=== PATIENT | female | born 1990 | race American Indian/Alaskan Native ===

== ENCOUNTER 2018-07-31 14:16 | Outpatient (CLI) | payer MEDICAID ==
[2018-07-31] MEDS ORDERED: LACTATED RINGERS 500 ML IV ONE (15:08)
[2018-07-31 16:15] LABS: Bilirubin,Urine NEG (Negative); Blood,Urine NEG (Negative); Color,Urine Amber (Yellow); Mucus,Urine 2+ /HPF
--- NOTE | 2018-07-31 17:07 | Ultrasound Report ---
FINAL REPORT EXAM: US OB BPP WO NON-STRESS HISTORY: well being TECHNIQUE: Ultrasound examination of the gravid uterus for biophysical profile evaluation of the fet us PRIORS: Limited Ob ultrasound 07/31/2018 FINDINGS: There is a single viable intrauterine with documented cardiac activity. The amniotic fluid volume is normal. heart rate: 153 and 164 bpm Amniotic fluid index: 10.8 cm position: Cephalic Evaluation for biophysical profile yields the following score as reported by technologist from real-t alen exam: respiratory motion (minimum one episode): 2 Gross body movement (minimum 3 movements): 2 tone (minimum one flexion and extension): 2 Amniotic fluid volume (at least 2 cm pocket in vertical diameter): 2 IMPRESSION: Single viable intrauterine with 8/8 biophysical profile score during the sonographic evalua tion
--- NOTE | 2018-07-31 17:11 | Ultrasound Report ---
FINAL REPORT EXAM: US OB LIMITED HISTORY: well being , 30 weeks 4 days gestation TECHNIQUE: Ultrasound evaluation of the gravid uterus PRIORS: Biophysical profile 07/31/2018 FINDINGS: There is a single viable intrauterine with documented cardiac activity. No anatomic a ssessment. Heart rate: 153 beats per minute position: Cephalic Amniotic fluid index: 10.8cm IMPRESSION: Single viable intrauterine with the above parameters
[2018-08-02 12:20] VITALS: BP 121/73
--- NOTE | 2018-08-03 06:57 | Event Note ---
Date: 07/31/18 Note for 07/31/2018 28 year old presents at 30 weeks, 4 days gestation to rule out labor. Patient states she has been having intermittent brief abdominal pains while standing. She denies regular contractions. Patient denies leaking of fluid or vaginal bleeding. Patient reports active movement. Patient denies any other complaints. Patient is well appearing, alert, oriented, NAD. VSS. Category 1 heart rate tracing. No regular contractions noted per monitor. No contractions palpated. No leaking of fluid or vaginal bleeding seen. MICHAELA 10.8 cm. BPP 8/8. Cervix closed and thick. Patient was determined not to be in active labor. PTL warning signs discussed with pt. Daily movement counting discussed with pt. Advised pt. to follow up at [facility] this week.
== END 2018-07-31 18:12 | disposition home or self-care (01) ==
LOC: TRG 14:16
PROVIDERS: ATTEND Obstetrics & Gynecology
DX: O47.03 False labor before 37 completed weeks of gestation, third trimester (principal); Z3A.30 30 weeks gestation of pregnancy
CPT/HCPCS: 59025; 76815; 76819; 81001

== ENCOUNTER 2018-09-08 17:13 | Outpatient (CLI) | payer MEDICAID ==
[2018-09-08] MEDS ORDERED: LACTATED RINGERS 500 ML IV ONE (17:49)
[2018-09-08 18:11] LABS: Color,Urine Yellow (Yellow)
[2018-09-08 18:12] LABS: Bacteria,Urine 2+ /HPF (Negative); Bilirubin,Urine NEG (Negative); Blood,Urine NEG (Negative); Mucus,Urine FEW /HPF
[2018-09-08 21:10] VITALS: BP 135/84
== END 2018-09-08 21:34 | disposition home or self-care (01) ==
LOC: TRG 17:13
PROVIDERS: ATTEND Obstetrics & Gynecology
DX: O47.03 False labor before 37 completed weeks of gestation, third trimester (principal); Z3A.36 36 weeks gestation of pregnancy
CPT/HCPCS: 59025; 81001; 96360; J7120

== ENCOUNTER 2018-09-12 01:39 | Outpatient (CLI) | payer MEDICAID ==
[2018-09-12 03:30] LABS: Amorphous Crystals,Urine Few; Bilirubin,Urine NEG (Negative); Blood,Urine NEG (Negative); Color,Urine Yellow (Yellow); Mucus,Urine FEW /HPF; Protein,Urine <15 mg/dL mg/dL (Negative)
[2018-09-12] MEDS ORDERED: TYLENOL PO ONE (03:48)
[2018-09-12 03:58] VITALS: BP 121/73
--- NOTE | 2018-09-12 21:18 | Progress Note ---
Assessment and Plan A: at 36 weeks, 5 days gestation. UTI, currently being treated with Macrobid as an outpatient. Reactive NST. No cervical change. P: Discharge patient home with labor precautions. Advised patient to perform daily movement counting. Advised patient to return promptly if any signs of active labor. Continue Macrobid po as an outpatient (pt. has Rx at home). Follow up with [facility] this week. Patient voiced understanding of instructions. Subjective - Subjective Date of service: 09/12/18 Principal diagnosis: at 36 weeks, 5 days gestation Interval history: Triage note for 09/12/18: 28 year old presents at 35 weeks, 5 days gestation with complaint of lower back discomfort. Patient is taking Macrobid for UTI for past 2 days; plans to complete her course of antibiotics. Patient reports active movement. She denies leaking of fluid or vaginal bleeding or regular contractions. She denies flank pain, fever, chills, or malaise. Patient denies any complications with this . Patient reports: movement normal, no loss of fluid, no vaginal bleeding, no contractions Objective - Exam Abdomen: Present: normal appearance, soft. Absent: distention, tenderness, guarding, rigidity Uterus: Present: normal, fundal height above umbilicus. Absent: tenderness FHR: category 1 Uterine Contraction Monitor Mode: External Cervical Dilatation: 3 (Exam by RN (no change per RN after greater than 1 hour)) Cervical Effacement Percentage: 80 station: -3 - Labs Labs: Laboratory Results - last 24 hr 09/12/18 02:55 Urine Color Yellow Urine Turbidity Clear Urine pH 6.0 Ur Specific [place] 1.013 Urine Protein <15 mg/dl Urine Glucose (UA) Neg Urine Ketones Neg Urine Blood Neg Urine Nitrite Neg Urine Bilirubin Neg Urine Urobilinogen 2.0 Ur Leukocyte Esterase Mod Urine WBC (Auto) 6.0 Urine RBC (Auto) 3.0 U Epithel Cells (Auto) 4.0 Amorphous Crystals Few Urine Mucus Few
== END 2018-09-12 04:17 | disposition home or self-care (01) ==
LOC: TRG 01:39
PROVIDERS: ATTEND Obstetrics & Gynecology
DX: O62.8 Other abnormalities of forces of labor (principal); Z3A.36 36 weeks gestation of pregnancy
CPT/HCPCS: 59025; 81001

== ENCOUNTER 2018-09-24 12:36 | Inpatient (IN) | payer MEDICAID ==
[2018-09-24] MEDS ORDERED: XYLOCAINE 2% INFILTRATI ONE (14:19)
[2018-09-24] MEDS ORDERED: BRETHINE IVP PRN (14:19)
[2018-09-24] MEDS ORDERED: NARCAN 0.4 MG/1 ML IV PRN (14:19)
[2018-09-24] MEDS ORDERED: MINERAL OIL PO PRN (14:19)
[2018-09-24] MEDS ORDERED: BRETHINE SUB-Q PRN (14:19)
[2018-09-24] MEDS ORDERED: STADOL IV PRN (14:19)
[2018-09-24] MEDS ORDERED: LACTATED RINGERS 1,000 ML ONE (14:22)
[2018-09-24] MEDS ORDERED: PITOCin/NS 30 UNIT/500ML 30,000 MILLIUNITS/500 ML BAG IV ONE (14:22)
--- NOTE | 2018-09-24 14:26 | History and Physical Report ---
History of Present Illness Date of examination: 09/24/18 Date of admission: 09/24/18 12:36 Chief complaint: Labor Pains History of present illness: Early entry to care; course complicated by Anemia, Vitamin D Deficiency, and a UTI. 2nd trimester complicated by vaginal bleeding. 3rd Trimester complicated by a +Ffn and labor concerns. 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 Family/Genetic History: heart disease, hypertension, stroke, cancer Social history: no significant social history, single - Obstetrical History Expected Date of Delivery: 10/05/18 Actual Gestation: 38 Week(s) 3 Day(s) : 4 Para: 3 Hx # Term Pregnancies: 3 Number of Living Children: 3 #1 Gender: Male year: 2,006 Birthweight: 2.948 kg Method of Delivery: Vaginal Gestational age at delivery: 38 #2 Gender: Female year: 2,011 Birthweight: 2.977 kg Method of Delivery: Vaginal Gestational age at delivery: 39 Complications: none #3 Gender: Male year: 2,014 Birthweight: 2.835 kg Method of Delivery: Vaginal (39) Medications and Allergies Allergies Allergy/AdvReac Type Severity Reaction Status Date / Time No Known Allergies Allergy Verified 07/31/18 14:47 Home Medications Medication Instructions Recorded Confirmed Last Taken Type No Known Home Medications [No 03/31/13 07/02/13 Unknown History Reported Home Medications] Active Meds: Active Medications Butorphanol Tartrate (Stadol) 1 mg IV Q2H PRN PRN Reason: Pain, Moderate (4-6) Ephedrine Sulfate (Ephedrine Sulfate) 10 mg IV Q2M PRN PRN Reason: Hypotension Lactated Ringer's (Lactated Ringers) 1,000 mls @ 125 mls/hr IV DIRECT SANDIE Oxytocin/Sodium Chloride (Pitocin/Ns 20 Unit/1000ml Drip) 20 units in 1,000 mls @ 125 mls/hr IV DIRECT SANDIE Oxytocin/Sodium Chloride (Pitocin/Ns 30 Unit/500ml) 30 units in 500 mls @ 1 mls/hr IV TITR SANDIE; Protocol Lidocaine (Xylocaine 2%) 20 ml INFILTRATI ONCE ONE Stop: 09/24/18 14:20 Mineral Oil (Mineral Oil) 30 ml PO QHS PRN PRN Reason: Constipation Naloxone HCl (Narcan 0.4 Mg/1 Ml) 0.1 mg IV Q2MIN PRN PRN Reason: Res Rate </= 8 or 02 SAT < 92% Terbutaline Sulfate (Brethine) 0.25 mg SUB-Q ONCE PRN PRN Reason: Hyperstimulation/Hypertonicity Terbutaline Sulfate (Brethine) 0.25 mg IVP ONCE PRN PRN Reason: Hyperstimulation/Hypertonicity Review of Systems All systems: negative - Vital Signs Vital signs: Vital Signs Pulse BP 78 116/75 09/24/18 13:50 09/24/18 13:50 Temp Pulse Resp BP Pulse Ox 78 116/75 09/24/18 13:50 09/24/18 13:50 - Physical Exam Breasts: Positive: normal Cardiovascular: Regular rate Lungs: Positive: Clear to auscultation, Normal air movement Abdomen: Positive: normal appearance, soft, normal bowel sounds Genitourinary (Female): Positive: normal external genitalia, normal perenium Vagina: Positive: normal moisture Uterus: Positive: enlarged Anus/Rectum: Positive: normal perianal skin - Obstetrical FHR: category 1 Uterine Contraction Monitor Mode: External Cervical Dilatation: 6 (Copious amount of clear fluid upon AROM at 1413) Cervical Effacement Percentage: 80 station: -2 Uterine Contraction Pattern: Irregular Uterine Tone Measurement Phase: Resting Uterine Contraction Intensity: Moderate Results All other labs normal. Assessment and Plan A: IUP @ 38 3/7 Weeks Category I Tracing Active Labor GBS Negative P: Admit to L&D per Routine Orders AROM Pitocin Augmentation
[2018-09-24] MEDS ORDERED: PITOCin/NS 30 UNIT/500ML 30 UNITS/500 ML BAG IV SCH (15:00)
[2018-09-24] MEDS ORDERED: LACTATED RINGERS 1,000 ML IV SCH (15:00)
[2018-09-24] MEDS ORDERED: PITOCin/NS 20 UNIT/1000ML DRIP 20 UNITS/1,000 ML BAG IV SCH (15:00)
[2018-09-24 15:15] LABS: Hematocrit 28.6 % (30.3-42.9); Hemoglobin 9.2 gm/dl (10.1-14.3); Mean Corpuscular HGB Conc 32 % (30-34); Mean Corpuscular Volume 80 fl (79-97); Platelet Count 267 K/mm3 (140-440); Red Blood Count 3.58 M/mm3 (3.65-5.03); Red Cell Distribution Width 16.2 % (13.2-15.2)
[2018-09-24] MEDS ORDERED: SUBLIMAZE IV ONE (17:01)
[2018-09-24] MEDS ORDERED: SUBLIMAZE ONE (17:02)
[2018-09-24] MEDS ORDERED: PHENERGAN PR PRN (17:21)
[2018-09-24] MEDS ORDERED: LANSINOH TP PRN (17:21)
[2018-09-24] MEDS ORDERED: TUCKS PAD TP PRN (17:21)
[2018-09-24] MEDS ORDERED: BENADRYL PO PRN (17:21)
[2018-09-24] MEDS ORDERED: NORCO 5/325 PO PRN (17:21)
[2018-09-24] MEDS ORDERED: METHERGINE IM ONE ×2 (17:27→17:33)
--- NOTE | 2018-09-24 17:28 | Procedure Note ---
OB Delivery Note - Delivery Date of Delivery: 09/24/18 (1704) Surgeon: DANIEL DREW Estimated blood loss: 200cc - Vaginal Delivery presentation: vertex Delivery position: OA Intrapartum events: none Delivery induction: none Delivery augmentation: rupture of membranes, pitocin Delivery monitor: external FHT, external uterine Route of delivery: Delivery placenta: spontaneous Delivery cord: 3 umbilical vessels Episiotomy: none Delivery laceration: none Anesthesia: none Delivery comments: of a live 6'13 female over a intact perineum under IV pain control with Apgars of 8 and 9 at 1704 on 09/24/2018. Infant directly to maternal abd/chest, skin to skin contact. Spontaneous delivery of placenta complete and intact with Kaur side presenting at 1710. Fundus is firm and midline located 4 below the U. Lochia is scant. Delayed cord clamping and cutting; Cord cut by the maternal grandmother. Placenta discarded. - Infant A at 1 minute: 8 at 5 minutes: 9 Gender: Female ([phone])
[2018-09-24] MEDS ORDERED: SODIUM CHLORIDE FLUSH SYRINGE 10 ML IV SCH (18:00)
[2018-09-24] MEDS: IBUPROFEN PO SCH (19:55)
[2018-09-24] MEDS: SENOKOT S PO SCH (19:57)
[2018-09-25] MEDS: IBUPROFEN PO SCH ×5 (04:56→23:28)
[2018-09-25] MEDS: SENOKOT S PO SCH ×3 (06:38→18:14)
[2018-09-25 07:59] LABS: Hematocrit 24.5 % (30.3-42.9); Hemoglobin 7.8 gm/dl (10.1-14.3)
--- NOTE | 2018-09-25 10:25 | Progress Note ---
Assessment and Plan - Patient Problems (1) Status post normal vaginal delivery Current Visit: Yes Status: Acute Plan to address problem: PPD 1 - stable Continue routine PP orders Anticipate discharge in 24-48 hours (2) Anemia due to blood loss, acute Current Visit: Yes Status: Acute Plan to address problem: Asymptomatic Iron therapy initiated Repeat H&H ordered 09/26/18 Subjective - Subjective Date of service: 09/25/18 Principal diagnosis: PPD #1; s/p Interval history: see H&P and OB Delivery Procedure Note Patient reports: appetite normal, voiding normally, pain well controlled, ambulating normally, no dizzy ambulation : doing well, bottle feeding Objective - Vital Signs Latest vital signs: Vital Signs Temp Pulse Resp BP BP Pulse Ox 09/25/18 07:46 97.6 F 78 18 114/72 100 09/25/18 05:36 98.1 F 18 115/71 09/25/18 05:35 98.1 F 68 18 115/71 97 09/25/18 01:01 98.0 F 18 111/68 09/25/18 01:00 98.8 F 68 18 111/68 98 09/24/18 21:00 72 99 09/24/18 20:01 98.4 F 16 137/87 09/24/18 19:55 18 09/24/18 19:05 98.7 F 09/24/18 19:04 76 108/62 09/24/18 18:49 75 115/65 09/24/18 18:34 75 112/65 09/24/18 18:24 78 112/59 09/24/18 17:49 72 115/64 09/24/18 17:41 79 124/67 09/24/18 17:38 77 122/65 09/24/18 17:26 82 108/61 09/24/18 17:19 80 103/54 09/24/18 15:06 97 F L 78 16 116/75 09/24/18 13:50 78 116/75 Intake and Output 09/24/18 09/25/18 09/25/18 23:59 07:59 15:59 Intake Total 720 Output Total 250 250 Balance -250 470 Intake: Oral 240 Intake, Free Water 480 Output: Urine 250 250 Void 250 250 Other: Total, Intake Amount 240 Total, Output Amount 250 250 # Voids Void 1 Estimated Blood Loss 200 - Exam Cardiovascular: Present: Regular rate Lungs: Present: Clear to auscultation Abdomen: Present: normal appearance, soft Vulva: both: normal Uterus: Present: normal, firm, fundal height at umbilicus Extremities: Present: normal Comments: scant lochia - Labs Labs: Abnormal lab results 09/24/18 09/25/18 Range/Units 14:55 07:14 RBC 3.58 L (3.65-5.03) M/mm3 Hgb 9.2 L 7.8 L (10.1-14.3) gm/dl Hct 28.6 L 24.5 L (30.3-42.9) % MCH 26 L (28-32) pg RDW 16.2 H (13.2-15.2) %
[2018-09-25] MEDS: FEOSOL PO SCH ×2 (10:43→21:31)
[2018-09-26] MEDS: IBUPROFEN PO SCH ×2 (05:05→12:26)
[2018-09-26] MEDS: SENOKOT S PO SCH (05:54)
[2018-09-26 06:38] LABS: Hematocrit 23.1 % (30.3-42.9); Hemoglobin 7.6 gm/dl (10.1-14.3)
--- NOTE | 2018-09-26 12:17 | Progress Note ---
Assessment and Plan A: day 2 S/P spontaneous vaginal delivery. Anemia secondary to and blood loss; patient is asymptomatic. P: Discharge patient home today when baby is able to go. Advised patient to continue taking her iron supplements at home (TID if possible). Advised patient to also continue taking her vitamin daily. discharge instructions and warning signs were discussed with patient in detail. Advised patient to avoid intercourse, driving, lifting, and heavy housework. Advised patient to return to [facility] in 2 weeks to recheck hemoglobin and hematocrit. Iron rich foods discussed with patient. Patient voiced understanding of all instructions. Subjective - Subjective Date of service: 09/26/18 Principal diagnosis: PPD #2; s/p Interval history: day 2 S/P spontaneous vaginal delivery. Doing well. Desires discharge today. Patient reports a small amount of lochia. Patient is voiding without difficulty and ambulating well. She is tolerating a regular diet without nausea or vomiting. Patient denies headache, dizziness, cough, shortness of breath, chest pain, abdominal pain, leg pain, heavy bleeding, symptoms of depression, or any other symptoms. Patient reports: appetite normal, voiding normally, pain well controlled, flatus, ambulating normally, no dizzy ambulation, no nauseated Fosters: doing well Objective - Vital Signs Latest vital signs: Vital Signs Temp Pulse Resp BP BP Pulse Ox 09/26/18 09:56 97.8 F 71 20 113/68 97 09/26/18 05:07 18 09/26/18 05:05 18 09/26/18 01:55 98.2 F 69 20 115/76 99 09/25/18 15:27 98.4 F 79 18 116/78 99 Intake and Output 09/25/18 09/26/18 09/26/18 23:59 07:59 15:59 Intake Total 240 360 Output Total 1 Balance 240 359 Intake: Intake, Free Water 240 360 Output: Urine 1 Void 1 Other: Total, Output Amount 1 # Voids Void 1 1 - Exam Cardiovascular: Present: Regular rate, Normal S1, Normal S2, No murmurs Lungs: Present: Clear to auscultation Abdomen: Present: normal appearance, soft. Absent: distention, tenderness, guarding, rigidity Uterus: Present: normal, firm, fundal height below umbilicus. Absent: bogginess, tenderness Extremities: Present: normal. Absent: tenderness, edema - Labs Labs: Abnormal lab results 09/26/18 Range/Units 06:01 Hgb 7.6 L (10.1-14.3) gm/dl Hct 23.1 L (30.3-42.9) %
--- NOTE | 2018-09-26 12:21 | Discharge Summary ---
Providers - Providers Date of Admission: 09/24/18 12:36 Date of discharge: 09/26/18 Attending physician: ABDIRAHMAN SERRANO MD Primary care physician: ABDIRAHMAN SERRANO MD Hospitalization Reason for admission: active labor Delivery: Episiotomy: none Laceration: none Other procedures: none complications: none Discharge diagnosis: IUP at term delivered [place] baby: female Pertinent studies: Labs Hospital course: Normal hospital course. Condition at discharge: Good Disposition: DC-01 TO HOME OR SELFCARE - Discharge Diagnoses (1) Term delivered Status: Acute (2) Anemia due to blood loss Status: Acute Plan - Provider Discharge Summary Activity: routine, no sex for 6 weeks, no heavy lifting 4 weeks, no strenuous exercise Diet: routine Instructions: routine Additional instructions: Take iron supplement at home every 8 hours. Take vitamin daily. (Patient has these medications at home). Call your doctor immediately for: * Fever > 100.5 * Heavy vaginal bleeding ( >1 pad per hour) * Severe persistent headache * Shortness of breath * Reddened, hot, painful area to leg or breast - Follow up plan Follow up: ABDIRAHMAN SERRANO MD [Primary Care Provider] - 14 Days
[2018-09-26] MEDS: FEOSOL PO SCH (12:26)
[2018-09-26 17:40] VITALS: BP 112/74
== END 2018-09-26 17:58 | disposition home or self-care (01) | DRG 775 ==
LOC: LD 12:36 → OB 19:46
PROVIDERS: ADMIT Obstetrics & Gynecology; ATTEND Obstetrics & Gynecology
PROC: 10E0XZZ Delivery of Products of Conception, External Approach (ICD-10-PCS; principal; 2018-09-24)
PROC: 10907ZC Drainage of Amniotic Fluid, Therapeutic from Products of Conception, Via Natural or Artificial Opening (ICD-10-PCS; 2018-09-24)
DX: O99.02 Anemia complicating childbirth (principal); D62 Acute posthemorrhagic anemia; Z3A.38 38 weeks gestation of pregnancy; Z37.0 Single live birth; Z82.49 Family history of ischemic heart disease and other diseases of the circulatory system; Z86.73 Personal history of transient ischemic attack (TIA), and cerebral infarction without residual deficits
CPT/HCPCS: 36415; 85014; 85018; 85027; 86592; 86850; 86900; 86901; G0378; J0595; J2210; J2590; J3010; J7120

== ENCOUNTER 2020-04-04 08:52 | Day surgery (SDC) | payer MEDICAID ==
--- NOTE | 2020-03-31 10:39 | History and Physical Report ---
History of Present Illness Date of examination: 03/31/20 History of present illness: 30 yo desires sterilization. 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 Review of Systems All systems: negative (except HPI) - Vital Signs Vital signs: per EMR charting - Physical Exam Cardiovascular: Regular rate Lungs: Positive: Clear to auscultation, Normal air movement Abdomen: Positive: normal appearance, soft. Negative: tenderness Genitourinary (Female): Positive: other (deferred to the OR) Results All other labs normal. Assessment and Plan - Patient Problems (1) Sterilization Status: Acute Plan to address problem: PT will present on 04/04 for scheduled Lap BTL. PT consented, including the leann [employer] 08/999 risk of failure. She understand and accepts this.
[2020-04-04] MEDS ORDERED: MAGNESIUM OXIDE 400 MG TAB PO ONE (09:26)
[2020-04-04] MEDS ORDERED: ACETAMINOPHEN 500 MG TAB PO ONE (09:26)
[2020-04-04] MEDS ORDERED: ONDANSETRON 4 MG/2 ML INJ IV PRN (09:27)
[2020-04-04] MEDS ORDERED: HYDROmorphone 1 MG/1 ML INJ IV PRN ×2 (09:27)
--- NOTE | 2020-04-04 09:28 | Anesthesia Consultation ---
Anesthesia Consult and Med Hx Date of service: 04/04/20 - Airway Anesthetic Teeth Evaluation: Good ROM Head & Neck: Adequate Mental/Hyoid Distance: Adequate Mallampati Class: Class II Intubation Access Assessment: Good - Pre-Operative Health Status ASA Pre-Surgery Classification: ASA2 Proposed Anesthetic Plan: General - Pulmonary Hx Asthma: No COPD: No Hx Pneumonia: No - Cardiovascular System Hx Hypertension: No - Central Nervous System Hx Seizures: No Hx Back Pain: Yes (Thoracic spine) Hx Psychiatric Problems: No - Endocrine Hx Renal Disease: No Hx End Stage Renal Disease: No Hx Hypothyroidism: No Hx Hyperthyroidism: No - Hematic Hx Anemia: No Hx Sickle Cell Disease: No - Other Systems Hx Alcohol Use: No Hx Cancer: No Hx Obesity: Yes
--- NOTE | 2020-04-04 09:28 | Anesthesia Day of Surgery ---
Anesthesia Day of Surgery - Day of Surgery Patient Examined: Yes Patient H&P Reviewed: Yes Patient is NPO: Yes
[2020-04-04] MEDS ORDERED: LACTATED RINGERS 1,000 ML IV SCH (10:00)
[2020-04-04] MEDS ORDERED: MIDAZOLAM 2 MG/2 ML INJ IV NR (10:00)
[2020-04-04] MEDS ORDERED: CELECOXIB 200 MG CAP PO NR (10:00)
[2020-04-04] MEDS ORDERED: GABAPENTIN 300 MG CAP PO NR (10:00)
[2020-04-04] MEDS ORDERED: BUPIVACAINE/PF (0.5%) 5 MG/1 ML 30 ML VIAL INFILTRATI ONE ×2 (10:11→11:11)
[2020-04-04] MEDS ORDERED: fentaNYL 100 MCG/2 ML INJ ONE (10:22)
[2020-04-04] MEDS ORDERED: ROCURONIUM 50 MG/5 ML INJ IV ONE (10:22)
[2020-04-04] MEDS ORDERED: propofoL 200 MG/20 ML VIAL IV ONE (10:22)
[2020-04-04] MEDS ORDERED: WATER FOR IRRIG STERILE 1,500 ML BOTTLE IR ONE (11:13)
[2020-04-04] MEDS ORDERED: NEOSTIGMINE 10MG/10 ML INJ MDV ONE (11:16)
[2020-04-04] MEDS ORDERED: dexAMETHasone 20 MG/5 ML VIAL ONE (11:16)
[2020-04-04] MEDS ORDERED: KETOROLAC 30 MG/1 ML INJ ONE (11:16)
[2020-04-04] MEDS ORDERED: ONDANSETRON 4 MG/2 ML INJ ONE (11:16)
[2020-04-04] MEDS ORDERED: GLYCOPYRROLATE 0.4 MG/2 ML INJ ONE (11:16)
[2020-04-04] MEDS ORDERED: LIDOCAINE MPF (2%) 20 MG/1 ML VIAL 5 ML ONE (11:19)
--- NOTE | 2020-04-04 11:28 | Post Operative Note ---
Date of procedure: 04/04/20 Pre-op diagnosis: Sterilization Post-op diagnosis: same Findings: Normal uterus, tubes, ovaries. General abdominal/pelvic survey within normal limits. No gross anomalies found anywhere. Procedure: Indication: 30-year-old G4, P4 desires sterilization. Procedure: Laparoscopic bilateral tubal ligation. Patient taken the operating room and prepped and draped in usual fashion. Attention was first turned vaginally where single-tooth tenaculum was applied to the anterior lip of the cervix and an acorn uterine manipulator was placed. Attention was now turned abdominally where a 5 mm incision was made in the umbilicus. Veres needle then placed in the abdominal cavity. The abdomen was appropriately insufflated with CO2 gas. Veres needle removed and the 5 mm trocar was placed in abdominal cavity. Placement confirmed with the camera. Attention was turned suprapubically where an 8 mm incision was made and the 8 mm trocar was placed suprapubically in the midline under direct visualization. Trocar placed successfully and without difficulty. Attention was first turned to assess in the abdomen and pelvis. Findings noted above. Attention turned to the tubal ligation where a Filshie clip was applied to each tube. Each clip encompassed the full width of the tube on each side and good hemostasis was noted afterwards on both sides. At this point the abdomen was fully desufflated. Trochars were removed. Trocar sites were closed with 4-0 Vicryl in a subcuticular fashion followed by Marcaine. The acorn uterine manipulator and single-tooth tenaculum were removed. Procedure concluded at this point. Patient tolerated the procedure well. All instrument lap counts were correct. Patient taken to the recovery room in stable condition. Anesthesia: GETA Surgeon: KRISTIN RUGGIERO Estimated blood loss: minimal Pathology: none Condition: stable Disposition: PACU
--- NOTE | 2020-04-04 11:29 | Short Stay Summary ---
Short Stay Documentation Date of service: 04/04/20 Narrative H&P: Patient here for her scheduled laparoscopic bilateral tubal ligation. Surgery was uncomplicated. Please see op report and H&P for details. Patient to follow-up in the office 2 weeks postop - History H&P: dictated Social history: no significant social history - Allergies and Medications Current Medications: Allergies acetaminophen [From Vicodin] Allergy (Verified 03/31/20 14:48) Heart races hydrocodone [From Vicodin] Allergy (Verified 03/31/20 14:48) Heart races Home Medications Medication Instructions Recorded Confirmed Last Taken Type RX: Ibuprofen [Motrin 600 MG tab] 600 mg PO Q6H PRN #30 tablet 04/04/20 Unknown Rx RX: traMADoL [Ultram 50 MG tab] 50 mg PO Q4HR PRN #30 tablet 04/04/20 Unknown Rx Active Medications Celecoxib (Celebrex) 400 mg PO PREOP NR Stop: 04/04/20 23:59 Last Admin: 04/04/20 09:50 Dose: 400 mg Documented by: Gabapentin (Gabapentin) 300 mg PO PREOP NR Stop: 04/04/20 23:59 Last Admin: 04/04/20 09:50 Dose: 300 mg Documented by: Hydromorphone HCl (Dilaudid) 0.25 mg IV Q10MIN PRN PRN Reason: Pain, Moderate (4-6) Hydromorphone HCl (Dilaudid) 0.5 mg IV Q10MIN PRN PRN Reason: Pain , Severe (7-10) Lactated Ringer's (Lactated Ringers) 1,000 mls @ 125 mls/hr IV DIRECT SANDIE Last Admin: 04/04/20 09:50 Dose: 125 mls/hr Documented by: Midazolam HCl (Versed) 2 mg IV PREOP NR Stop: 04/04/20 23:59 Ondansetron HCl (Zofran) 4 mg IV ONCE PRN PRN Reason: Nausea And Vomiting - Disposition Condition at discharge: Stable Disposition: DC-01 TO HOME OR SELFCARE - Discharge Diagnoses (1) Sterilization Status: Acute Short Stay Discharge Plan Follow up with: KRISTIN RUGGIERO MD [Staff Physician] - 14 Days Prescriptions: RX: Ibuprofen [Motrin 600 MG tab] 600 mg PO Q6H PRN #30 tablet PRN Reason: Pain RX: traMADoL [Ultram 50 MG tab] 50 mg PO Q4HR PRN #30 tablet PRN Reason: Pain
[2020-04-04] MEDS ORDERED: oxyCODONE /ACETAMINOPHEN 5-325MG TAB ONE (11:57)
[2020-04-04] MEDS ORDERED: oxyCODONE /ACETAMINOPHEN 5-325MG TAB PO PRN (11:59)
[2020-04-04 12:10] VITALS: BP 110/65
--- NOTE | 2020-04-04 12:23 | Post Anesthesia Evaluation ---
- Post Anesthesia Evaluation Patient Participated: Yes Airway Patent: Yes Stable Respiratory Function: Yes Nausea/Vomiting: No Temp > 96.8F: Yes Pain Manageable: Yes Adequeate Hydration: Yes Anesthesia Complications: No Block Receding Appropriately: Not Applicable Patient on Ventilator: No
== END 2020-04-04 08:53 | disposition home or self-care (01) ==
LOC: OR 08:52
PROVIDERS: ATTEND Obstetrics & Gynecology
DX: Z30.2 Encounter for sterilization (principal); D50.0 Iron deficiency anemia secondary to blood loss (chronic); K21.9 Gastro-esophageal reflux disease without esophagitis; E66.9 Obesity, unspecified; Z68.38 Body mass index [BMI] 38.0-38.9, adult; Z79.899 Other long term (current) drug therapy; Z88.8 Allergy status to other drugs, medicaments and biological substances; Z98.890 Other specified postprocedural states; Z82.49 Family history of ischemic heart disease and other diseases of the circulatory system
CPT/HCPCS: 58671; 81025; J1100; J1170; J1885; J2405; J2704; J2710; J3010; J7120